=== PATIENT | female | born 1965 | race Caucasian/White ===

== ENCOUNTER → 2018-07-05 | Outpatient (CLI) | payer OTHER ==
--- NOTE | 2018-07-05 13:52 | RAD ---
Left lower extremity venous duplex ultrasound study without comparison for left lower extremity edema. TECHNIQUE AND FINDINGS: Real-time grayscale and color and spectral Doppler evaluation of the veins of the left lower extremity is performed. The left common femoral, superficial femoral, and popliteal veins are widely patent demonstrating normal compressibility and augmentation of flow. There is normal color flow and compressibility of the posterior tibial veins. Within the greater saphenous vein at the level of the distal thigh, there is a short segment of noncompressibility with some internal echoes suggesting focal thrombophlebitis. Also within the medial aspect of the knee region, there is a superficial varicosity which is distended by acute thrombus. IMPRESSION: 1. No evidence of deep vein thrombus is. 2. Superficial thrombophlebitis involving a short segment of the greater saphenous vein in the distal thigh, as well as a varicosity just medial to the knee. Electronically signed by: Johan Garcia MD (07/05/2018 1:50 PM) [id number]
== END | disposition home or self-care (01) ==
LOC: US 11:18
PROVIDERS: ATTEND Internal Medicine
DX: I80.02 Phlebitis and thrombophlebitis of superficial vessels of left lower extremity (principal); Z86.711 Personal history of pulmonary embolism
CPT/HCPCS: 93971

== ENCOUNTER → 2019-02-11 | Outpatient (CLI) | payer BC ==
--- NOTE | 2019-02-11 17:09 | KCIC ---
EXAM: Left knee, 3 views; left tibia and fibula, 2 views. HISTORY: Pain. COMPARISON: None. FINDINGS: 3 views left knee and 2 views of the left tibia and fibula are obtained. There is no fracture, dislocation or subacute fixation. There is mild medial compartment joint space narrowing, subchondral sclerosis and spurring. There is enthesopathy along the patella. There is a small knee effusion. There is a corticated ossicle inferior to the lateral malleolus, likely due to a chronic nonunited fracture. There may be bone islands within the distal fibula. IMPRESSION: 1. Mild medial compartment osteoarthritis of the left knee with small joint effusion. 2. 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 Electronically signed by: Emily Maldonado MD (02/11/2019 5:06 PM) [id number]
== END | disposition home or self-care (01) ==
LOC: KCIC 16:04
PROVIDERS: ATTEND Internal Medicine
DX: S82.892K Other fracture of left lower leg, subsequent encounter for closed fracture with nonunion (principal); M17.12 Unilateral primary osteoarthritis, left knee; M76.892 Other specified enthesopathies of left lower limb, excluding foot; M25.462 Effusion, left knee; X58.XXXD Exposure to other specified factors, subsequent encounter
CPT/HCPCS: 73562; 73590